=== PATIENT | male | born 1980 | race Caucasian/White ===

== ENCOUNTER → 2018-03-11 | Outpatient (CLI) | payer OTHER ==
[~2018-03-11] MED LIST: DIAZEPAM 10 MG TABLET. ONE; FAMOTIDINE 20 MG/2 ML VIAL ONE; IOHEXOL 350 MG/ML 100 ML VIAL. ONE; IOHEXOL 350 MG/ML 50 ML VIAL. ONE; IV NORMAL SALINE 1000ML BAG 1,000 ML ONE; LIDOCAINE 1% Multi-Dose 50 ML VIAL. ONE; MIDAZOLAM HCL/PF 2 MG/2 ML VIAL. ONE; diphenhydrAMINE 50 MG/ML VIAL ONE; fentaNYL PF VIAL 100 MCG/2 ML VIAL ONE; methylPREDNISolone SOD SUCC PF 125 MG/2 ML VIAL. ONE
--- NOTE | 2018-03-11 16:23 | PCVCINTER ---
APPROVED REPORT Study performed: 03/11/2018 11:44:06 Patient Details Patient Status: Out-Patient Room #: 3 The patient is a 37 year-old Male Event Personnel Soha Birmingham MD, Hannah Johns RT(R)(), Maximo Shaw RT(R), Luciano Moreno RN Indication CHF Current Status: , Cardiomyopathy Risk Factors Dysplipidemia (Type: 0), Last Creatanine 1.3Tobacco History (Former) Previous Procedures/Diagnoses Arrhythmias - Supraventricular tachycardias->Focal ATs, Sleep apnea Procedure Narrative The patient was brought electively to the Cardiac Catheterization Laboratory and was prepped and draped in a sterile manner. The right femoral was infiltrated with 1% Lidocaine subcutaneous anesthesia. A Right Heart Catheterization was performed with a 7 Fr. [place]-Priscilla catheter and pressure were recorded. Cardiac outputs were obtained by the Thermal Dilution method. A 6f sheath was inserted into the right femoral artery. Coronary angiography was performed using coronary diagnostic catheters. The right coronary system was accessed and visualized with a JR4 catheter. The left coronary system was accessed and visualized with a JL4 catheter. The left ventricle was accessed and visualized with a Pigtail catheter. Left ventricular/Aortic Valve gradient assessed via catheter pullback. Left ventriculogram was performed in BAHENA projection. Closure device was deployed with a 6 Fr Mynx. Hemostasis was obtained with manual pressure following sheath removal without any complications. The patient tolerated the procedure well and there were no complications associated with the procedure. There was no hematoma. Coronary Angiography The patient's coronary anatomy is right dominant. Diagnostic Cath Left MainNormal left main LADNormal left anterior descending Diagonal 1Normal first diagonal branch Diagonal 2Normal second diagonal branch CircumflexThe circumflex was large but nondominant. [id number], angiographically normal first marginal branch [id number] sized normal second marginal branch Right CoronaryLarge, angiographically normal and dominant right coronary R PDANormal posterior descending branch RPLVNormal posterior lateral branch Left Ventriculography The left ventricle is moderately dilated in size with abnormal contractility. The left ventricular ejection fraction is estimated to be 20%. There is 1+ mitral insufficiency. Hemodynamics The right atrial mean pressure is 18 mmHg. The right ventricular pressure is 62/10 mmHg. The pulmonary artery pressure is 56/35 mmHg with a mean of 44 mmHg. The mean pulmonary capillary wedge pressure is 30 mmHg. The aortic pressure is 91/68 mmHg with a mean of 77 mmHg. The left ventricular pressure is 105/4 mmHg with a mean of 32 mmHg. The left ventricular end diastolic pressure is 22 mmHg. The cardiac output and index were assessed using Thermalthermodilution. The cardiac output using thermo method is 3.65 L/min. Conclusion 1. Severe global left ventricular dysfunction with left ventricular enlargement. Ejection fraction 20%. 2. Normal coronary vasculature. Right coronary dominant circulation. 3. Elevated right heart pressures. Recommendations Aggressive Medical Therapy
== END | disposition home or self-care (01) ==
LOC: PCVCINTER 16:00
PROVIDERS: ATTEND Internal Medicine
DX: I34.0 Nonrheumatic mitral (valve) insufficiency (principal); I42.9 Cardiomyopathy, unspecified; G47.30 Sleep apnea, unspecified; I47.1 Supraventricular tachycardia; Z87.891 Personal history of nicotine dependence
CPT/HCPCS: 93460; C1751; C1760; C1769; C1894; J1200; J1644; J2250; J2930; J3010; J3490; J7030; Q9967

== ENCOUNTER → 2018-08-26 | Outpatient (CLI) | payer OTHER ==
--- NOTE | 2018-08-26 13:52 | PCVCIMAG ---
APPROVED REPORT Study performed: 08/26/2018 12:57:25 EXAM: Comprehensive 2D, Doppler, and color-flow Echocardiogram Patient Location: Echo lab Status: routine BSA: 2.46 HR: 79 bpmBP: 114/78 mmHg Rhythm: NSR Other Information Study Quality: Adequate Technically limited study due to body habitus. Risk Factors: Cardiac Risk Factors: HTN Indications Congestive Heart Failure dilated cardiomyopathy 2D Dimensions IVSd: 9.24 (7-11mm) LVDd: 70.03 mm PWd: 9.31 (7-11mm)Ascending Ao: 28.30 (22-36mm) LVDs: 63.68 (25-40mm) Left Atrium: 54.61 (27-40mm) Aortic Root: 28.44 mm LV Single Plane 4CH: 27.23 % LV Single Plane 2CH: 24.70 % Biplane EF: 26.5 % Volumes Left Atrial Volume (Systole) Single Plane 4CH: 149.82 mLSingle Plane 2CH: 113.71 mL LA ESV Index: 56.00 mL/m2 Aortic Valve AoV Peak David.: 0.88 m/s AO Peak Gr.: 3.07 mmHgLVOT Max P.08 mmHg LVOT Max V: 0.52 m/s Pulmonary Valve PV Peak David.: 0.61 m/sPV Peak Gr.: 1.49 mmHg Pulmonary Vein P Vein S: 0.38 m/sP Vein A: 0.29 m/s P Vein D: 0.79 m/sP Vein A Dur.: 138.4 msec P Vein S/D Ratio: 0.48 Tricuspid Valve TR Peak David.: 2.91 m/s TR Peak Gr.: 33.86 mmHg Left Ventricle Left ventricle is dilated. There is global hypokinesis of the left ventricle. There is normal left ventricular wall thickness. Left ventricular ejection fraction is severely decreased. LVEF is 20-25%. This study is not technically sufficient to allow evaluation of the LV diastolic function. Right Ventricle The right ventricle is normal size. The right ventricular systolic function is normal. Atria Left atrium is severely dilated. The right atrium size is normal. Aortic Valve The aortic valve is normal in structure. No aortic regurgitation is present. There is no aortic valvular stenosis. Mitral Valve The mitral valve is normal in structure. Moderate mitral regurgitation. No evidence of mitral valve stenosis. Tricuspid Valve The tricuspid valve is normal in structure. Mild tricuspid regurgitation with PAP of 40 mmHg. Pulmonic Valve The pulmonary valve is normal in structure. There is no pulmonic valvular regurgitation. Great Vessels The aortic root is normal in size. IVC is normal in size and collapses >50% with inspiration. Pericardium There is no pericardial effusion. There is no pleural effusion. <Conclusion> Left ventricular ejection fraction is severely decreased. LVEF is 20-25%. Left atrium is severely dilated. The aortic valve is normal in structure. No aortic regurgitation or stenosis. The mitral valve is normal in structure. Moderate mitral regurgitation. Mild tricuspid regurgitation with pulmonary arter pressure of 40 mmHg. There is no pericardial effusion.
== END | disposition home or self-care (01) ==
LOC: PCVCIMAG 13:11
PROVIDERS: ATTEND Internal Medicine
DX: I08.1 Rheumatic disorders of both mitral and tricuspid valves (principal); I42.0 Dilated cardiomyopathy; I50.22 Chronic systolic (congestive) heart failure
CPT/HCPCS: 93306

== ENCOUNTER → 2018-10-27 | Outpatient (CLI) | payer OTHER ==
--- NOTE | 2018-10-27 12:31 | PCVCIMAG ---
APPROVED REPORT Study performed: 10/27/2018 09:34:03 EXAM: Comprehensive 2D, Doppler, and color-flow Echocardiogram Patient Location: Echo lab Status: routine BSA: 2.49 HR: 80 bpmBP: 108/70 mmHg Rhythm: NSR Other Information Study Quality: Adequate Risk Factors: Cardiac Risk Factors: HTN, Hyperlipidemia Indications Cardiomyopathy MIRIAM 2D Dimensions IVSd: 8.40 (7-11mm)LVOT Diam: 24.55 (18-24mm) LVDd: 71.76 mm PWd: 9.36 (7-11mm)Ascending Ao: 34.32 (22-36mm) LVDs: 61.64 (25-40mm) Left Atrium: 47.30 (27-40mm) Aortic Root: 27.12 mm LV Single Plane 4CH: 20.73 % LV Single Plane 2CH: 18.80 % Biplane EF: 16.1 % Volumes Left Atrial Volume (Systole) Single Plane 4CH: 82.79 mLSingle Plane 2CH: 98.03 mL LA ESV Index: 3.90 mL/m2 Aortic Valve AoV Peak David.: 0.91 m/s AO Peak Gr.: 3.33 mmHgLVOT Max P.51 mmHg LVOT Max V: 0.61 m/s DEBRA Vmax: 3.19 cm2 Mitral Valve E/A Ratio: 1.8 MV Decel. Time: 97.48 ms MV E Max David.: 0.74 m/s MV A David.: 0.42 m/s TDI E/Lateral E': 14.80E/Medial E': 12.33 Medial E' David.: 0.06 m/s Lateral E' David.: 0.05 m/s Pulmonary Valve PV Peak Gr.: 0.99 mmHg Left Ventricle Left ventricle is moderately dilated. There is global hypokinesis of the left ventricle. There is normal left ventricular wall thickness. Left ventricular ejection fraction is severely decreased. LVEF is 20%. Moderate diastolic dysfunction is present (pseudonormal filling). Right Ventricle The right ventricle is normal size. The right ventricular systolic function is normal. Atria The left atrium size is normal. The right atrium size is normal. Aortic Valve The aortic valve is normal in structure. No aortic regurgitation is present. There is no aortic valvular stenosis. Mitral Valve The mitral valve is normal in structure. Mild mitral valve regurgitation No evidence of mitral valve stenosis. Tricuspid Valve The tricuspid valve is normal in structure. There is no tricuspid valve regurgitation noted. Pulmonic Valve The pulmonary valve is normal in structure. There is no pulmonic valvular regurgitation. Great Vessels The aortic root is normal in size. IVC is normal in size and collapses >50% with inspiration. Pericardium There is no pericardial effusion. <Conclusion> Left ventricular ejection fraction is severely decreased. There is global hypokinesis of the left ventricle. LVEF is 20%. Moderate diastolic dysfunction The aortic valve is normal in structure. No aortic regurgitation or stenosis The mitral valve is normal in structure. Mild mitral valve regurgitation Pulmonary artery pressure could not be reliably ascertained There is no pericardial effusion.
== END | disposition home or self-care (01) ==
LOC: PCVCIMAG 08:56
PROVIDERS: ATTEND Internal Medicine
DX: I34.0 Nonrheumatic mitral (valve) insufficiency (principal); I11.0 Hypertensive heart disease with heart failure; I50.22 Chronic systolic (congestive) heart failure; I42.0 Dilated cardiomyopathy; G47.33 Obstructive sleep apnea (adult) (pediatric)
CPT/HCPCS: 93306